=== PATIENT | female | born 1985 | race Asian ===

== ENCOUNTER 2022-04-19 20:16 | Emergency (ER) | payer BC ==
[2022-04-19] MEDS ORDERED: Sodium Chloride 0.9% 10 ML Syringe FLUSH PRN (22:22)
[2022-04-19] MEDS ORDERED: Sodium Chloride 0.9% 2.5 ML Syringe FLUSH PRN (22:22)
[2022-04-19] MEDS ORDERED: Morphine 4 MG/ML Syringe IVPUSH ONE (22:32)
[2022-04-19] MEDS ORDERED: Ondansetron 4 MG/2 ML SDV IVPUSH ONE (22:32)
[2022-04-19] MEDS ORDERED: Sodium Chloride 0.9% 1,000 ML IV ONE (22:33)
[2022-04-19 23:13] LABS: CARBON DIOXIDE,CO2 26.4 mmol/L (21.0-32.0); POTASSIUM,K 3.4 mmol/L (3.5-5.1)
== END 2022-04-20 00:47 | disposition home or self-care (01) ==
LOC: MW.ED 20:16
DX: K82.8 Other specified diseases of gallbladder (principal); Z79.899 Other long term (current) drug therapy
CPT/HCPCS: 36415; 76705; 80053; 81003; 83690; 83735; 84703; 85025; 96361; 96374; 96375; 99284; J2270; J2405; J3490; J7030